=== PATIENT | female | born 1955 | race Caucasian/White ===

== ENCOUNTER 2018-07-02 00:38 | Outpatient (CLI) | payer OTHER ==
[2018-07-02 12:16] LABS: Hemoglobin 14.6 g/dL (12.0-16.0); Mean Corpuscular HGB CONC 33.2 g/dL (32.0-36.0); Mean Corpuscular Hemoglobin 31.3 pg (27.0-31.0); Mean Corpuscular Volume 94.4 fL (78.0-98.0); Mean Platelet Volume 8.9 fL (7.4-10.4); Platelet Count 201 thou/uL (130-400); RBC Distribution Width 11.5 % (11.5-14.5); Red Blood Cell (RBC) Count 4.67 mill/uL (4.20-5.40); White Blood Cell (WBC) Count 6.8 thou/uL (4.8-10.8)
[2018-07-02 12:37] LABS: PTT 26.8 SEC (22.9-36.1); Prothrombin Time 12.9 SEC (12.0-14.7)
[2018-07-02 12:41] LABS: Anion Gap 13 mmol/L (10-20); BUN (Urea Nitrogen) 22 mg/dL (9.8-20.1); Calc. Creatinine Clearance 0 mL/min (70-130); Calcium 9.5 mg/dL (7.8-10.44); Carbon Dioxide 25 mmol/L (23-31); Chloride 105 mmol/L (98-107); Estimated GFR-MDRD 70; Glucose 93 mg/dL (80-115); Potassium 3.9 mmol/L (3.5-5.1); Sodium 139 mmol/L (136-145)
== END 2018-07-02 00:39 | disposition home or self-care (01) ==
LOC: LABBT 00:38
PROVIDERS: ATTEND Surgery
DX: Z01.818 Encounter for other preprocedural examination (principal); M54.16 Radiculopathy, lumbar region; M48.061 Spinal stenosis, lumbar region without neurogenic claudication
CPT/HCPCS: 80048; 85027; 85610; 85730; 93005; 93010

== ENCOUNTER 2018-07-08 10:52 | Day surgery (SDC) | payer OTHER ==
[2018-07-02 11:12] VITALS: BMI 37.4
[2018-07-08] MEDS ORDERED: PROPOFOL 200 MG/20 ML VIAL ONE (11:03)
[2018-07-08] MEDS ORDERED: Rocuronium Bromide 10 MG/ML (10ML VIAL) ONE (11:03)
[2018-07-08] MEDS ORDERED: PHENYLEPHRINE-NS 100 MCG/ML 10 ML SYRINGE ONE (11:03)
[2018-07-08] MEDS ORDERED: ePHEDrine 50 MG/ML VIAL ONE (11:03)
[2018-07-08] MEDS ORDERED: Dexamethasone 20 MG/5 ML VIAL ONE (11:03)
[2018-07-08] MEDS ORDERED: Glycopyrrolate 0.2 MG/ML 5 ML SYRINGE ONE (11:03)
[2018-07-08] MEDS ORDERED: Ondansetron PF 4 MG/2 ML Vial ONE (11:03)
[2018-07-08] MEDS ORDERED: Ketorolac Tromethamine 30 MG/ML VIAL ONE (11:03)
[2018-07-08] MEDS ORDERED: Lidocaine 1% PF 5 ML VIAL ONE ×2 (11:03)
[2018-07-08] MEDS ORDERED: Thrombin 5000 UNITS/5 ML VIAL ONE ×2 (12:40→14:59)
[2018-07-08] MEDS ORDERED: Sodium Chloride 0.9% 10 ML ONE ×2 (12:40→14:59)
[2018-07-08] MEDS ORDERED: Clindamycin/D5W 900 mg/50 ml Premix Bag ONE (14:29)
[2018-07-08] MEDS ORDERED: Levofloxacin 500 mg/D5W 100 ml Premix Bag ONE (14:29)
[2018-07-08] MEDS ORDERED: Bacitracin Zinc Ointment 30 gm TUBE ONE (14:59)
[2018-07-08] MEDS ORDERED: Fentanyl 100 MCG/2 ML VIAL ONE ×2 (15:18→17:44)
[2018-07-08] MEDS ORDERED: Midazolam HCl 2 mg/2 ml Vial ONE (15:19)
[2018-07-08] MEDS ORDERED: Promethazine HCl 25 MG/ML VIAL SLOW IVP PRN (18:29)
[2018-07-08] MEDS ORDERED: Promethazine HCl 25 MG/ML VIAL IM PRN ×2 (18:29→18:59)
[2018-07-08] MEDS ORDERED: HYDROmorphone 2 MG/ML VIAL SLOW IVP PRN (18:29)
[2018-07-08] MEDS ORDERED: Meperidine HCl/PF 25 MG/ML VIAL SLOW IVP PRN (18:29)
[2018-07-08] MEDS ORDERED: Morphine 4 MG/ML VIAL ONE (18:43)
[2018-07-08] MEDS ORDERED: Fleet Enema 133 ML BOT PR PRN (18:59)
[2018-07-08] MEDS ORDERED: Acetaminophen 325 MG TAB PO PRN (18:59)
[2018-07-08] MEDS ORDERED: Mag-Al 1200 mg/1200 mg/30 ML UDCUP PO PRN (18:59)
[2018-07-08] MEDS ORDERED: Acetaminophen/Codeine 30-300mg Tablet PO PRN (18:59)
[2018-07-08] MEDS ORDERED: Bisacodyl 10 MG SUPP PR PRN (18:59)
[2018-07-08] MEDS ORDERED: traMADol HCl 50 MG TAB PO PRN (18:59)
[2018-07-08] MEDS ORDERED: Morphine 4 MG/ML VIAL SLOW IVP PRN (18:59)
[2018-07-08] MEDS ORDERED: Milk Of Magnesia 30 ML UDCUP PO PRN (18:59)
[2018-07-08] MEDS ORDERED: ALPRAZOLAM 2 MG PO PRN (19:02)
[2018-07-08] MEDS: Sodium Chloride 0.9% 1,000 ML IV SCH (20:42)
[2018-07-08] MEDS: Cyclobenzaprine 10 MG TAB PO SCH (20:42)
[2018-07-08] MEDS: Clindamycin/D5W 900 MG in Premix Bag 1 BAG IVPB SCH (20:42)
--- NOTE | 2018-07-08 21:07 | OP ---
DATE OF PROCEDURE: 07/08/2018 OPERATING ROOM: OR 12. WOUND CLASSIFICATION: Type 1 wound. REEL CUTTER: Demar Teague PA-C. PREPROCEDURE DIAGNOSIS: Right L5 and right S1 radiculopathy with right L5-S1 disk extrusion with paracentral and foraminal components. POSTPROCEDURE DIAGNOSIS: Right L5 and right S1 radiculopathy with right L5-S1 disk extrusion with paracentral and foraminal components. PROCEDURES PERFORMED: 1. Right L5-S1 hemilaminotomy, foraminotomy, and paracentral diskectomy for decompression of traversing right S1 nerve root. 2. Right L5-S1 trans-facet approach for decompression of the exiting right L5 nerve root with foraminal diskectomy for lateral decompression. 3. Use of operative microscope for microdissection. DESCRIPTION OF PROCEDURE: After informed consent was obtained from the patient, the patient was brought to the OR. Proper patient, pause, and identification were carried out. She was placed under excellent general endotracheal anesthesia and positioned prone on the OR table. All appropriate points were padded. We identified the L5-S1 dorsal spines. A linear alexsandra was made. This region was sterilely cleansed, prepared, and draped. Proper patient, pause, and identification were carried out. The wound was then opened with a combination of sharp, monopolar, and blunt dissection. The L5-S1 darwin-lamina on the right side was exposed. Localization film confirmed our area of interest and performed a right L5-S1 hemilaminotomy, foraminotomy, and diskectomy for paracentral decompression of the traversing right S1 nerve root. Use of operative microscope was used for microdissection. We then performed the trans-facet component of the procedure for decompression of the right L5 nerve root with lateral diskectomy for removal of the lateral or foraminal disk components. We were very pleased with our decompression. There was no CSF leak. Copious irrigation occurred throughout. We maximized hemostasis. The wound was closed in anatomic layers. The patient was then emerged from anesthesia. Job ID: [id number]
[2018-07-09] MEDS: HYDROcodone/Acetaminophen 7.5/325 mg Tablet PO PRN ×2 (01:28→06:35)
[2018-07-09] MEDS: Clindamycin/D5W 900 MG in Premix Bag 1 BAG IVPB SCH (06:35)
[2018-07-09] MEDS: Sodium Chloride 0.9% 1,000 ML IV SCH (07:35)
[2018-07-09 07:49] VITALS: BP 134/71; TEMP 98.4
[2018-07-09] MEDS: Cyclobenzaprine 10 MG TAB PO SCH (08:39)
[2018-07-09] MEDS ORDERED: Hydrochlorothiazide 25 MG TAB PO SCH (09:00)
--- NOTE | 2018-07-09 17:23 | PRG ---
DATE OF SERVICE: 07/09/2018 Ms. Sharma is postoperative day 1 from right-sided lumbar diskectomy. She states her sciatic pain may be slightly worse. I suspect this is radiculitis, but she states overall she feels "great". Went over both intra and postoperative issues and she has met criteria for dismissal and we will work on dismissal at this time. Job ID: [id number]
== END 2018-07-09 11:02 | disposition home or self-care (01) ==
LOC: SDC 10:52 → SJJU 19:01 → UNDOADMOB 19:01 → SDC 07-09 11:02 → UNDODISOB 07-09 11:02
PROVIDERS: ATTEND Surgery
PROC: 0SB20ZZ Excision of Lumbar Vertebral Disc, Open Approach (ICD-10-PCS; principal; 2018-07-08)
DX: M51.17 Intervertebral disc disorders with radiculopathy, lumbosacral region (principal); Z88.1 Allergy status to other antibiotic agents; Z79.899 Other long term (current) drug therapy
CPT/HCPCS: 76000; J0131; J1100; J1885; J1956; J2001; J2250; J2270; J2405; J2704; J3010; J3370; J3490